=== PATIENT | male | born 1935 | race Caucasian/White ===

== ENCOUNTER 2021-10-21 12:42 | Outpatient (CLI) | payer MEDICARE | END 2021-10-21 12:43 | disposition home or self-care (01) | LOC: CSHULT 12:42 | PROVIDERS: ATTEND Family Medicine | DX: I25.10 Atherosclerotic heart disease of native coronary artery without angina pectoris (principal); E11.22 Type 2 diabetes mellitus with diabetic chronic kidney disease; N18.9 Chronic kidney disease, unspecified; R20.0 Anesthesia of skin; R60.0 Localized edema; E11.51 Type 2 diabetes mellitus with diabetic peripheral angiopathy without gangrene | CPT/HCPCS: 93925 ==

== ENCOUNTER 2021-12-15 10:44 | Inpatient (IN) | payer MEDICARE, OTHER ==
[2021-12-15 11:51] LABS: Hemoglobin 8.8 g/dL (13.5-17.5); MDiff Complete? YES; Mean Corpuscular Hemoglobin 35.8 pg (27.0-33.0); Mean Corpuscular Volume 108.5 fl (81.2-95.1); Mean Platelet Volume 9.7 fl (7.4-10.4); Platelet Count 162 10x3/uL (150-450); RBC Distribution Width 13.1 % (11.5-14.5); Red Blood Cell (RBC) Count 2.46 10x6/uL (4.32-5.72)
[2021-12-15 11:55] LABS: INR-International Normal Ratio 1.1; Prothrombin Time 12.2 sec (9.5-12.1)
[2021-12-15 12:10] LABS: ALT (SGPT) 11 U/L (8-55); AST (SGOT) 19 U/L (5-34); Albumin 4.1 g/dL (3.4-4.8); Alkaline Phosphatase 50 U/L (40-110); Anion Gap 13 mmol/L (10-20); BUN (Urea Nitrogen) 58 mg/dL (8.4-25.7); Bilirubin, Total 0.6 mg/dL (0.2-1.2); Calc. Creatinine Clearance 0 mL/min (70-130); Carbon Dioxide 29 mmol/L (23-31); Chloride 99 mmol/L (98-107); Globulin 2.7 g/dL (2.4-3.5); Glucose 108 mg/dL (83-110); Potassium 4.2 mmol/L (3.5-5.1); Protein, Total 6.8 g/dL (5.8-8.1); Sodium 137 mmol/L (136-145)
[2021-12-15 12:22] LABS: Eosinophils 3 % (0-10); Lymphocytes 30 % (21-51); Monocytes 9 % (0-10); Neutrophil 58 % (42-75)
[2021-12-15 12:30] LABS: Macrocytosis SLIGHT = 6-15 cells (100X) (0-5/hpf); Platelet Morphology Comment Appears Adequate
[2021-12-15] MEDS ORDERED: Acetaminophen 650 MG Suppository PR PRN (14:26)
[2021-12-15] MEDS ORDERED: Acetaminophen 325 MG TAB PO PRN (14:26)
[2021-12-15] MEDS ORDERED: Ondansetron ODT 4 MG TAB PO PRN (14:26)
[2021-12-15] MEDS ORDERED: Ondansetron PF 4 MG/2 ML Vial IVP PRN (14:26)
[2021-12-15 15:07] LABS: SARS-CoV-2 NAA Rapid Test Not Detected (NotDetected)
[2021-12-15 15:19] LABS: Hemoglobin 8.4 g/dL (13.5-17.5)
[2021-12-15 16:26] VITALS: BMI 25.4
[2021-12-15] MEDS ORDERED: Furosemide 40 MG/4 ML VIAL SLOW IVP SCH (17:00)
[2021-12-15] MEDS: Carvedilol 6.25 MG TAB PO SCH (17:55)
[2021-12-15] MEDS: Sodium Chloride 0.9% 1,000 ML IV SCH (19:52)
[2021-12-15 20:00] LABS: Hemoglobin 9.2 g/dL (13.5-17.5)
[2021-12-16 03:21] LABS: #Eosinphils 0.1 10x3/uL (0.0-0.5); #Monocytes 0.5 10x3/uL (0.0-1.1); %Basophils 0.8 % (0.0-2.0); %Eosinophils 3.7 % (0.0-6.0); %Lymphocytes 26.3 % (18.0-47.0); %Monocytes 14.3 % (0.0-10.0); Hemoglobin 9.3 g/dL (13.5-17.5); Mean Corpuscular HGB CONC 34.1 g/dL (32.0-36.0); Mean Corpuscular Hemoglobin 35.4 pg (27.0-33.0); Mean Corpuscular Volume 103.8 fl (81.2-95.1); Mean Platelet Volume 9.8 fl (7.4-10.4); Platelet Count 128 10x3/uL (150-450); RBC Distribution Width 16.5 % (11.5-14.5); Red Blood Cell (RBC) Count 2.63 10x6/uL (4.32-5.72); White Blood Cell (WBC) Count 3.8 10x3/uL (3.5-10.5)
[2021-12-16 03:33] LABS: Anion Gap 15 mmol/L (10-20); BUN (Urea Nitrogen) 51 mg/dL (8.4-25.7); Calc. Creatinine Clearance 23 mL/min (70-130); Calcium 8.4 mg/dL (7.8-10.44); Carbon Dioxide 26 mmol/L (23-31); Chloride 101 mmol/L (98-107); Glucose 116 mg/dL (83-110); Potassium 4.3 mmol/L (3.5-5.1); Sodium 138 mmol/L (136-145)
[2021-12-16] MEDS: Carvedilol 6.25 MG TAB PO SCH ×2 (08:12→16:45)
[2021-12-16] MEDS: Magnesium Oxide 400 MG TAB PO SCH (08:12)
[2021-12-16] MEDS ORDERED: Dextrose 5% in Water 1,000 ML IV PRN (08:16)
[2021-12-16] MEDS ORDERED: HumaLOG 300 UNITS/3 ML VIAL SC PRN (08:16)
[2021-12-16] MEDS ORDERED: Dextrose 50% Abboject 50 ML SYRINGE SLOW IVP PRN (08:16)
[2021-12-16 08:50] LABS: Hemoglobin 9.7 g/dL (13.5-17.5)
[2021-12-16] MEDS: hydrALAZINE 25 MG TAB PO SCH ×3 (09:23→20:35)
[2021-12-16] MEDS: Sodium Chloride 0.9% 1,000 ML IV SCH (09:23)
[2021-12-16 14:38] LABS: Hemoglobin 9.4 g/dL (13.5-17.5)
[2021-12-16 15:09] LABS: Bilirubin Neg (Negative); Blood, Urine Negative (Negative); Clarity Clear (Clear); Glucose, Urine (Dipstick) Normal (Negative); Ketone, Urine Negative (Negative); Leukocyte Negative (Negative); Nitrite Negative (Negative); Protein, Urine (Dipstick) Negative (Neg-Trace); Urobilinogen Normal mg/dL (Less than 2)
[2021-12-16 15:38] LABS: RBC/HPF None Seen HPF (0-3); Urine Culture Reflex No No
[2021-12-16] MEDS ORDERED: GoLYTELY 4,000 ml Bottle PO SCH (18:00)
[2021-12-17 04:16] LABS: #Eosinphils 0.1 10x3/uL (0.0-0.5); #Monocytes 0.4 10x3/uL (0.0-1.1); #Neutrophils 1.7 10x3/uL (1.5-8.4); %Basophils 0.6 % (0.0-2.0); %Eosinophils 2.8 % (0.0-6.0); %Lymphocytes 27.2 % (18.0-47.0); %Monocytes 13.6 % (0.0-10.0); %Neutrophils 52.1 % (40.0-75.0); Mean Corpuscular HGB CONC 33.8 g/dL (32.0-36.0); Mean Corpuscular Hemoglobin 35.2 pg (27.0-33.0); Mean Corpuscular Volume 103.9 fl (81.2-95.1); Mean Platelet Volume 9.5 fl (7.4-10.4); Platelet Count 117 10x3/uL (150-450); RBC Distribution Width 15.8 % (11.5-14.5); Red Blood Cell (RBC) Count 2.56 10x6/uL (4.32-5.72); White Blood Cell (WBC) Count 3.2 10x3/uL (3.5-10.5)
[2021-12-17 04:29] LABS: Anion Gap 14 mmol/L (10-20); BUN (Urea Nitrogen) 36 mg/dL (8.4-25.7); Calc. Creatinine Clearance 28 mL/min (70-130); Calcium 8.2 mg/dL (7.8-10.44); Carbon Dioxide 25 mmol/L (23-31); Chloride 104 mmol/L (98-107); Glucose 102 mg/dL (83-110); Phosphorus 2.9 mg/dL (2.3-4.7); Potassium 3.8 mmol/L (3.5-5.1); Sodium 139 mmol/L (136-145)
[2021-12-17] MEDS: Carvedilol 6.25 MG TAB PO SCH (06:04)
[2021-12-17] MEDS ORDERED: PROPOFOL 20 ML ONE (08:09)
[2021-12-17] MEDS ORDERED: Lidocaine 2% MPF 10 ML AMP (For Epidural Use) ONE (08:10)
[2021-12-17] MEDS ORDERED: Folic Acid 1 MG TAB PO SCH (09:00)
[2021-12-17] MEDS: Magnesium Oxide 400 MG TAB PO SCH (09:55)
[2021-12-17] MEDS: hydrALAZINE 25 MG TAB PO SCH (09:55)
[2021-12-17] MEDS ORDERED: hydrALAZINE 25 MG TAB PO SCH ×3 (11:00→15:00)
[2021-12-17 12:33] VITALS: BP 101/46; TEMP 98
[2021-12-18] MEDS ORDERED: Calcitriol 0.25 MCG CAP PO SCH (09:00)
== END 2021-12-17 15:05 | disposition home or self-care (01) | DRG 378 ==
LOC: CSHERS 10:44 → CSHTELE 16:06 → OBSVTOIN 19:33
PROVIDERS: ADMIT Family Medicine; ATTEND Physician Assistant
PROC: 30233N1 Transfusion of Nonautologous Red Blood Cells into Peripheral Vein, Percutaneous Approach (ICD-10-PCS; 2021-12-15)
PROC: 0DB78ZX Excision of Stomach, Pylorus, Via Natural or Artificial Opening Endoscopic, Diagnostic (ICD-10-PCS; principal; 2021-12-17)
PROC: 0DBP8ZZ Excision of Rectum, Via Natural or Artificial Opening Endoscopic (ICD-10-PCS; 2021-12-17)
PROC: 0DBL8ZZ Excision of Transverse Colon, Via Natural or Artificial Opening Endoscopic (ICD-10-PCS; 2021-12-17)
DX: K25.4 Chronic or unspecified gastric ulcer with hemorrhage (principal); N17.9 Acute kidney failure, unspecified; D62 Acute posthemorrhagic anemia; I48.19 Other persistent atrial fibrillation; D61.818 Other pancytopenia; E66.9 Obesity, unspecified; I25.10 Atherosclerotic heart disease of native coronary artery without angina pectoris; E78.5 Hyperlipidemia, unspecified; N18.2 Chronic kidney disease, stage 2 (mild); E11.22 Type 2 diabetes mellitus with diabetic chronic kidney disease; I12.9 Hypertensive chronic kidney disease with stage 1 through stage 4 chronic kidney disease, or unspecified chronic kidney disease; K57.30 Diverticulosis of large intestine without perforation or abscess without bleeding; E21.3 Hyperparathyroidism, unspecified; D63.1 Anemia in chronic kidney disease; Z20.822 Contact with and (suspected) exposure to COVID-19; Z85.46 Personal history of malignant neoplasm of prostate; Z79.82 Long term (current) use of aspirin; Z79.899 Other long term (current) drug therapy; Z79.01 Long term (current) use of anticoagulants; Z87.891 Personal history of nicotine dependence; Z68.25 Body mass index [BMI] 25.0-25.9, adult
CPT/HCPCS: 36415; 36416; 36430; 71045; 76770; 80048; 80053; 81001; 82274; 82607; 82746; 83605; 83880; 83970; 84100; 84484; 85025; 85610; 86850; 86900; 86901; 88305; 93005; 94640; 94760; G0378; J1815; J2704; J7050; J7620; P9016; U0002

== ENCOUNTER 2022-12-26 10:59 | Outpatient (CLI) | payer OTHER | END 2022-12-26 11:00 | disposition home or self-care (01) | LOC: CSHRAD 10:59 | PROVIDERS: ATTEND Nurse Practitioner | DX: R06.02 Shortness of breath (principal); J94.8 Other specified pleural conditions | CPT/HCPCS: 71046 ==